=== PATIENT | male | born 1935 | race Caucasian/White ===

== ENCOUNTER 2018-02-18 19:31 | Emergency (ER) | payer OTHER ==
--- NOTE | 2018-02-18 19:40 | ER Report ---
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 Patient has an extensive history of smoking. He states he's been short of breath for one month. He had a left scopic, cholecystectomy and was discharged from the hospital back on 01/20/18. He was readmitted with shortness of breath and had a CT angiogram and further diagnostic evaluation, which was unremarkable. Patient more recently was evaluated by his marketing services rep and had some torturous anomalous coronary arteries and was started on Plavix one day ago for prevention of thrombus. Patient notes no fever, chills or productive cough. Patient notes only mild dyspnea at rest and with exertion. He notes no leg swelling or calf pain. Patient normally receives his care through the [facility] in [place], [place] and [place], [place]. Patient denies chest pain. He denies nausea or diaphoresis. REVIEW OF SYSTEMS: Respiratory: As above Cardiovascular: No chest pain, no palpitations. Gastrointestinal: No vomiting, no abdominal pain. Musculoskeletal: No back pain. Allergies: Coded Allergies: No Known Drug Allergies (Unverified , 02/18/18) Home Meds Reported Medications Magnesium Amino Acid Chelate (MAGNESIUM) 27 Mg Tablet, 64 MG PO DAILY 02/18/18 Fish Oil/Dha/Epa (FISH OIL 1,200 MG FISH OIL) 1 Each Capsule, 1 EACH PO BID, CAPSULE 02/18/18 Cyanocobalamin/Folic Acid (VITAMIN K47-UQKCO ACID TABLET) 1 Each Tablet, 1 EACH PO DAILY 02/18/18 Cholecalciferol (Vitamin D3) (VITAMIN D3) 1,000 Unit Tablet, 1000 UNIT PO DAILY , TAB 02/18/18 Atorvastatin Calcium (ATORVASTATIN CALCIUM) 10 Mg Tablet, 1 TAB PO QDAY, TAB 02/18/18 Aspirin (ASPIR 81) 81 Mg Tablet.dr, 81 MG PO QDAY, TAB 02/18/18 Metformin Hcl (METFORMIN HCL) 1,000 Mg Tablet, 1 TAB PO BID, TAB 02/18/18 Clopidogrel Bisulfate (PLAVIX) 75 Mg Tablet, 1 TAB PO QODAY, TAB 02/18/18 Reviewed Nurses Notes: Yes Old Medical Records Reviewed: Yes Constitutional Vital Sign - Last 24 Hours 02/18/18 02/18/18 02/18/18 02/18/18 19:41 20:36 20:36 20:37 Temp 97.0 Pulse 71 68 75 Resp 22 16 18 B/P (MAP) 153/81 Pulse Ox 97 93 O2 Delivery Room Air Room Air 02/18/18 02/18/18 02/18/18 02/18/18 21:00 21:06 21:10 21:15 Pulse 72 75 Resp 22 24 B/P (MAP) 153/79 (103) 128/83 (98) Pulse Ox 93 98 O2 Delivery Nasal Cannula Nasal Cannula O2 Flow Rate 1.0 1 1 02/18/18 02/18/18 02/18/18 21:25 21:30 21:40 Pulse 68 67 Resp 27 25 B/P (MAP) 128/84 (99) Pulse Ox 95 93 O2 Delivery Nasal Cannula Room Air Physical Exam General Appearance: The patient is alert, has no immediate need for airway protection and no current signs of toxicity. Vital signs stable, afebrile, pulse ox normal HEENT: Pupils equal and round no injection. Oropharynx without redness or exudate, mucous. Membranes are moist Respiratory: Chest is non tender, lungs are clear to auscultation. Faint expiratory wheezing, no rales or rhonchi Cardiac: regular rate and rhythm Gastrointestinal: Abdomen is soft and non tender, no masses, bowel sounds normal. Musculoskeletal: Neck: Neck is supple and non tender. Extremities have full range of motion and are non tender. Skin: No rashes or lesions. DIFFERENTIAL DIAGNOSIS: After history and physical exam differential diagnosis was considered for shortness of breath including but not limited to pulmonary infectious process, COPD, asthma, pulmonary embolus and congestive heart failure. Medical Decision Making Data Points Result Diagram: 02/18/18194702/18/181947 Laboratory Hematology Test 02/18/18 19:48 Red Blood Count 5.56 M/uL (4.00-5.60) Mean Corpuscular Volume 84.2 fL (80.0-96.0) Mean Corpuscular Hemoglobin 29.4 pg (26.0-33.0) Mean Corpuscular Hemoglobin Concent 34.9 g/dL (32.0-36.0) Red Cell Distribution Width 15.4 % (11.5-14.5) Mean Platelet Volume 8.3 fL (7.2-11.1) Neutrophils (%) (Auto) 73.7 % (39.4-72.5) Lymphocytes (%) (Auto) 14.1 % (17.6-49.6) Monocytes (%) (Auto) 8.8 % (4.1-12.4) Eosinophils (%) (Auto) 2.6 % (0.4-6.7) Basophils (%) (Auto) 0.8 % (0.3-1.4) Nucleated RBC Relative Count (auto) 0.0 /100WBC Neutrophils # (Auto) 4.6 K/uL (2.0-7.4) Lymphocytes # (Auto) 0.9 K/uL (1.3-3.6) Monocytes # (Auto) 0.5 K/uL (0.3-1.0) Eosinophils # (Auto) 0.2 K/uL (0.0-0.5) Basophils # (Auto) 0.0 K/uL (0.0-0.1) Nucleated RBC Absolute Count (auto) 0.00 K/uL Prothrombin Time 13.6 seconds (12.0-14.4) Prothromb Time International Ratio 1.04 Activated Partial Thromboplast Time 27 seconds (23-35) D-Dimer Quantitative (PE/DVT) 1.18 ug/ml (0-0.50) Sodium Level 138 mmol/L (137-145) Potassium Level 4.0 mmol/L (3.5-5.0) Chloride Level 98 mmol/L (98-107) Carbon Dioxide Level 29 mmol/L (22-30) Blood Urea Nitrogen 15 mg/dl (9-21) Creatinine 1.00 mg/dl (0.66-1.25) Glomerular Filtration Rate Calc > 60.0 Random Glucose 108 mg/dl (75-110) Calcium Level 9.2 mg/dl (8.4-10.2) Total Bilirubin 0.9 mg/dl (0.2-1.3) Aspartate Amino Transf (AST/SGOT) 45 U/L (0-35) Alanine Aminotransferase (ALT/SGPT) 54 U/L (0-56) Alkaline Phosphatase 240 U/L (0-126) Troponin I < 0.012 ng/ml B-Type Natriuretic Peptide 140 pg/ml (0-100) Total Protein 7.4 gm/dl (6.3-8.2) Albumin 4.0 g/dl (3.5-5.0) Chemistry Test 02/18/18 19:48 White Blood Count 6.2 k/uL (4.5-11.0) Red Blood Count 5.56 M/uL (4.00-5.60) Hemoglobin 16.3 g/dL (14.0-18.0) Hematocrit 46.8 % (42.0-52.0) Mean Corpuscular Volume 84.2 fL (80.0-96.0) Mean Corpuscular Hemoglobin 29.4 pg (26.0-33.0) Mean Corpuscular Hemoglobin Concent 34.9 g/dL (32.0-36.0) Red Cell Distribution Width 15.4 % (11.5-14.5) Platelet Count 126 K/uL (150-450) Mean Platelet Volume 8.3 fL (7.2-11.1) Neutrophils (%) (Auto) 73.7 % (39.4-72.5) Lymphocytes (%) (Auto) 14.1 % (17.6-49.6) Monocytes (%) (Auto) 8.8 % (4.1-12.4) Eosinophils (%) (Auto) 2.6 % (0.4-6.7) Basophils (%) (Auto) 0.8 % (0.3-1.4) Nucleated RBC Relative Count (auto) 0.0 /100WBC Neutrophils # (Auto) 4.6 K/uL (2.0-7.4) Lymphocytes # (Auto) 0.9 K/uL (1.3-3.6) Monocytes # (Auto) 0.5 K/uL (0.3-1.0) Eosinophils # (Auto) 0.2 K/uL (0.0-0.5) Basophils # (Auto) 0.0 K/uL (0.0-0.1) Nucleated RBC Absolute Count (auto) 0.00 K/uL Prothrombin Time 13.6 seconds (12.0-14.4) Prothromb Time International Ratio 1.04 Activated Partial Thromboplast Time 27 seconds (23-35) D-Dimer Quantitative (PE/DVT) 1.18 ug/ml (0-0.50) Glomerular Filtration Rate Calc > 60.0 Calcium Level 9.2 mg/dl (8.4-10.2) Total Bilirubin 0.9 mg/dl (0.2-1.3) Aspartate Amino Transf (AST/SGOT) 45 U/L (0-35) Alanine Aminotransferase (ALT/SGPT) 54 U/L (0-56) Alkaline Phosphatase 240 U/L (0-126) Troponin I < 0.012 ng/ml B-Type Natriuretic Peptide 140 pg/ml (0-100) Total Protein 7.4 gm/dl (6.3-8.2) Albumin 4.0 g/dl (3.5-5.0) Coagulation Test 02/18/18 19:48 Prothrombin Time 13.6 seconds Prothromb Time International Ratio 1.04 Activated Partial Thromboplast Time 27 seconds D-Dimer Quantitative (PE/DVT) 1.18 ug/ml EKG/Imaging EKG Interpretation 12 lead EKG: Rhythm: Right bundle branch block pattern with premature ventricular complexes Effie: normal QRS: ? Old inferior Q waves ST segments: normal, no evidence of acute ischemic changes, no old EKGs for comparison, right bundle branch block with repolarization abnormality Imaging XResults: CT scan of the CTA pulmonary angiogram was obtained. The results of the study are EXAMINATION: CTA of the chest with IV contrast HISTORY: Dyspnea. TECHNIQUE: Pulmonary embolus protocol - Thin axial CT images of the chest were obtained with IV contrast during maximal pulmonary arterial opacification. Reconstruction of the source data includes multiplanar 2D coronal and sagittal reconstructed images, and 3D coronal and sagittal MIP images. [employer] images have been stored on PACS. One of the following dose optimization techniques was utilized in the performance of this exam: Automated exposure control; adjustment of the mA and/ or kV according to the patient's size; or use of an iterative reconstruction technique. Specific details can be referenced in the facility's radiology CT exam operational policy. Contrast: 75 mL of IV Isovue-370. COMPARISON: None. FINDINGS: Pulmonary arteries: The pulmonary arteries are well opacified, without suspicious filling defect. Heart, aorta, and great vessels: Sternotomy with surgical changes of CABG. Mild aneurysmal dilatation of the ascending thoracic aorta, measuring 4.4 cm. The thoracic aorta is poorly opacified on this exam which was tailored for evaluation of the pulmonary arteries. No pericardial effusion. Lungs and pleura: Mild emphysematous changes in the upper lungs. Mild biapical scarring. Slight scarring or atelectasis in the lung bases. No focal consolidation or pleural effusion. The central airways are patent. Mediastinum and enriqueta: Small hiatal hernia. Visualized upper abdomen: Cholecystectomy. There is a partially visualized cystic structure in the left upper abdomen centered anterior and inferior to the spleen, with some rim calcification. This measures at least 9.1 cm but is only partially imaged. This may be arising from the left kidney, but the source of this cystic structure is not discretely defined on limited upper abdominal images. Chest wall: Negative. Bones: No acute osseous findings or focal osseous lesions. Scattered degenerative changes throughout the spine. IMPRESSION: 1. No evidence of pulmonary embolism. 2. Mild pulmonary emphysema. 3. Mild scarring or atelectasis in the lower lungs. No focal consolidation. 4. Sternotomy with surgical changes of CABG. 5. Aneurysmal dilatation of the ascending thoracic aorta, measuring 4.4 cm. 6. Cholecystectomy. 7. Large cystic structure partially visualized in the left upper abdomen. This may be arising from the left kidney but is only partially imaged. 8. Small hiatal hernia. The study was read by the radiologist. I viewed the images myself on the PACS system. ED Course/Re-evaluation Clinical Indication for ER IV: IV Access ED Course Patient was admitted to an examination room. H&P was done. The differential diagnosis was considered. On clinical examination. Patient has stable vital signs and normal pulse ox. Diagnostic evaluation is undertaken. Patient has an EKG, which shows no evidence of ischemia. There are no old for comparison. He has a right bundle branch block pattern. His laboratory studies are unremarkable except for an elevated d-dimer. 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 He is from [place]. He's from a lower elevation in [facility]. He' s been having some shortness of breath for 24 hours in altitude. He denies leg swelling or calf pain. He denies chest pain. Patient feels better after a DuoNeb. Patient be discharged with albuterol nebulizer. He is advised to follow-up with his primary care doctor when he returns home. Decision to Disposition Date: Feb 18, 2018 Decision to Disposition Time: 21:28 Depart Departure Latest Vital Signs Vital Signs Date Time Temp Pulse Resp B/P (MAP) Pulse Ox O2 Delivery O2 Flow Rate FiO2 4//18 21:40 67 25 93 Room Air 02/18/18 21:30 128/84 (99) 02/18/18 21:10 1 02/18/18 19:41 97.0 Impression: Primary Impression: Dyspnea Additional Impressions: COPD (chronic obstructive pulmonary disease) Status post laparoscopic cholecystectomy Hypertension Hyperlipidemia Condition: Improved Disposition: HOME OR SELF-CARE Additional Instructions: Use pro-air inhaler 2 puffs every 6 hours as needed for shortness of breath Follow-up with your primary care doctor upon returning home Go to the nearest ER for any worsening Problem Qualifiers Primary Impression: Dyspnea Dyspnea type: unspecified Qualified Codes: R06.00 - Dyspnea, unspecified Additional Impressions: COPD (chronic obstructive pulmonary disease) COPD type: unspecified COPD Qualified Codes: J44.9 - Chronic obstructive pulmonary disease, unspecified Hypertension Hypertension type: essential hypertension Qualified Codes: I10 - Essential ( primary) hypertension Hyperlipidemia Hyperlipidemia type: unspecified Qualified Codes: E78.5 - Hyperlipidemia, unspecified BRITTNEY WARD DO Feb 18, 2018 19:40
[2018-02-18] MEDS ORDERED: ASPI-1471 PO (19:52)
[2018-02-18] MEDS ORDERED: CLOP75TA43 PO (19:52)
[2018-02-18] MEDS ORDERED: MAGN27TA6 PO (19:52)
[2018-02-18] MEDS ORDERED: ATOR10TA65 PO (19:52)
[2018-02-18] MEDS ORDERED: METF-420 PO (19:52)
[2018-02-18] MEDS ORDERED: CYAN1TAB68 PO (19:52)
[2018-02-18] MEDS ORDERED: CHOL10005 PO (19:52)
[2018-02-18] MEDS ORDERED: FISH1CAP15 PO (19:52)
[2018-02-18] MEDS ORDERED: methylPREDNIS SUCC 125 MG/2ML IVP ONE (20:00)
[2018-02-18] MEDS ORDERED: ALBUTEROL/IPRATROPIUM 3 ML NEB NEB ONE (20:00)
[2018-02-18 20:08] LABS: PLATELET COUNT, AUTOMATED 126 K/uL (150-450)
[2018-02-18 20:16] LABS: INR 1.04
[2018-02-18] MEDS ORDERED: IOPAMIDOL 76% 75 ML INFUS BTL 75 ML ONE (20:33)
[2018-02-18] MEDS ORDERED: NS 0.9% 150 ML BAG 150 ML ONE (20:33)
--- NOTE | 2018-02-18 20:43 | EKG ---
FACILITY: [facility] PATIENT NAME: LILY GREEN : [id number] MR: [id number] V: [id number] EXAM DATE: ORDERING PHYSICIAN: BRITTNEY WARD TECHNOLOGIST: CEE Test Reason : DYSPNEA Blood Pressure : / mmHG Vent. Rate : 069 BPM Atrial Rate : 069 BPM P-R Int : 180 ms QRS Dur : 154 ms QT Int : 428 ms P-R-T Axes : 020 023 038 degrees QTc Int : 458 ms Sinus rhythm with occasional premature ventricular complexes and Possible premature atrial complexes with aberrant conduction Right bundle branch block Inferior infarct , age undetermined Abnormal ECG No previous ECGs available Confirmed by MARY GARCÍA ([id number]) on 02/19/2018 6:25:28 AM Referred By: Confirmed By:MARY GARCÍA
[2018-02-18 21:30] VITALS: BP 128/84
--- NOTE | 2018-02-18 21:36 | RADIOLOGY IMAGING REPORT ---
FACILITY: [facility] - [place] PATIENT NAME: Jay Montilla : 1935 MR: [id number] V: [id number] EXAM DATE: ORDERING PHYSICIAN: BRITTNEY WARD TECHNOLOGIST: Location: [facility] [place] Patient: Jay Montilla : 1935 Visit/Account:[id number] Date of Sevice: 02/18/2018 EXAMINATION: CTA of the chest with IV contrast HISTORY: Dyspnea. TECHNIQUE: Pulmonary embolus protocol - Thin axial CT images of the chest were obtained with IV con trast during maximal pulmonary arterial opacification. Reconstruction of the source data includes mul tiplanar 2D coronal and sagittal reconstructed images, and 3D coronal and sagittal MIP images. Repres entative images have been stored on PACS. One of the following dose optimization techniques was utilized in the performance of this exam: Autom ated exposure control; adjustment of the mA and/or kV according to the patient's size; or use of an i terative reconstruction technique. Specific details can be referenced in the facility's radiology C T exam operational policy. Contrast: 75 mL of IV Isovue-370. COMPARISON: None. FINDINGS: Pulmonary arteries: The pulmonary arteries are well opacified, without suspicious filling defect. Heart, aorta, and great vessels: Sternotomy with surgical changes of CABG. Mild aneurysmal dilatatio n of the ascending thoracic aorta, measuring 4.4 cm. The thoracic aorta is poorly opacified on this e xam which was tailored for evaluation of the pulmonary arteries. No pericardial effusion. Lungs and pleura: Mild emphysematous changes in the upper lungs. Mild biapical scarring. Slight scar ring or atelectasis in the lung bases. No focal consolidation or pleural effusion. The central airway s are patent. Mediastinum and enriqueta: Small hiatal hernia. Visualized upper abdomen: Cholecystectomy. There is a partially visualized cystic structure in the l eft upper abdomen centered anterior and inferior to the spleen, with some rim calcification. This mercy sures at least 9.1 cm but is only partially imaged. This may be arising from the left kidney, but the source of this cystic structure is not discretely defined on limited upper abdominal images. Chest wall: Negative. Bones: No acute osseous findings or focal osseous lesions. Scattered degenerative changes throughout the spine. IMPRESSION: 1. No evidence of pulmonary embolism. 2. Mild pulmonary emphysema. 3. Mild scarring or atelectasis in the lower lungs. No focal consolidation. 4. Sternotomy with surgical changes of CABG. 5. Aneurysmal dilatation of the ascending thoracic aorta, measuring 4.4 cm. 6. Cholecystectomy. 7. Large cystic structure partially visualized in the left upper abdomen. This may be arising from th e left kidney but is only partially imaged. 8. Small hiatal hernia. Report Dictated By: Ray Franklin MD at 02/18/2018 9:19 PM Report E-Signed By: Ray Franklin MD at 02/18/2018 9:31 PM [id number]
[2018-02-18] MEDS ORDERED: ALBUTEROL SULFATE 90 MCG/ACT 8.5 GM HNH INH PRN (21:45)
== END 2018-02-18 21:55 | disposition home or self-care (01) ==
LOC: ER 19:46
DX: J44.9 Chronic obstructive pulmonary disease, unspecified (principal); E78.5 Hyperlipidemia, unspecified; I10 Essential (primary) hypertension; I45.10 Unspecified right bundle-branch block; J43.9 Emphysema, unspecified; R91.8 Other nonspecific abnormal finding of lung field; K44.9 Diaphragmatic hernia without obstruction or gangrene; R94.31 Abnormal electrocardiogram [ECG] [EKG]
CPT/HCPCS: 71275; 83880; 84484; 85025; 85379; 85610; 85730; 93005; 94640; 96374; 99284; J2930; J7620; Q9967; 82040; 82247; 82310; 82374; 82435; 82565; 82947; 84075; 84132; 84155; 84295; 84450; 84460; 84520